=== PATIENT | female | born 2000 | race Caucasian/White ===

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

== ENCOUNTER 2022-06-14 17:24 | Emergency (ER) | payer MEDICAID ==
[~2022-06-14] VITALS: Ht 175.3 cm; Wt 65.9 kg
[~2022-06-14 17:24] MED LIST changes: -NAPR-56 PO
[2022-06-14 17:43] VITALS: BP 111/51
[2022-06-14] MEDS ORDERED: diazepam 5mg tablet PO ONE (17:55)
[2022-06-14] MEDS ORDERED: ketorolac tromethamine 15mg/ml inj. IM ONE (17:55)
[2022-06-14] MEDS ORDERED: cyclobenzaprine 10mg tablet PO ONE (17:55)
[2022-06-14] MEDS ORDERED: IBUP-1986 PO (17:56)
[2022-06-14] MEDS ORDERED: CYCL-1 PO (17:56)
== END 2022-06-14 18:38 | disposition home or self-care (01) ==
LOC: ER 17:25
DX: M43.6 Torticollis (principal); R51.9 Headache, unspecified; Z87.448 Personal history of other diseases of urinary system; Z79.899 Other long term (current) drug therapy; Z79.2 Long term (current) use of antibiotics
CPT/HCPCS: 96372; 99283; J1885

== ENCOUNTER 2022-12-21 10:16 | Emergency (ER) | payer MEDICAID ==
[~2022-12-21] VITALS: Ht 175.3 cm; Wt 97.6 kg
[~2022-12-21 10:16] MED LIST changes: +CYCL-1 PO; +IBUP-1986 PO
[2022-12-21 11:00] LABS: URINE HCG NEGATIVE (NEG)
[2022-12-21 11:17] LABS: CLARITY,URINE CLEAR (Clear); COLOR,URINE YELLOW (Yellow); GLUCOSE, URINE NEGATIVE (Neg); KETONES,URINE TRACE mg/dl (Neg); LEUKOCYTE ESTERASE ,URINE NEGATIVE (Neg); NITRITES, URINE NEGATIVE (Neg); OCCULT BLOOD,URINE NEGATIVE (Neg); PROTEIN,URINE NEGATIVE (Neg); UROBILINOGEN,URINE 0.2 E.U/dL (0.2-1.0)
[2022-12-21 11:21] LABS: UA COLLECTION TYPE CLN CATCH MIDSTREAM
[2022-12-21] MEDS ORDERED: normal saline 1000ml 1,000 ML IV ONE (12:45)
[2022-12-21] MEDS ORDERED: ondansetron/PF 4mg/2ml inj IV ONE (12:45)
[2022-12-21 13:17] LABS: BASOPHILS # (AUTO) 0.1 X10'3 (0-0.2); BASOPHILS % (AUTO) 0.5 % (0-1); EOSINOPHILS % (AUTO) 0.2 % (0-6); HEMATOCRIT 32.3 % (35.0-45.0); HEMOGLOBIN 10.1 g/dl (12.0-16.0); LYMPHOCYTES # (AUTO) 0.5 X10'3 (1.1-4.8); LYMPHOCYTES % (AUTO) 2.8 % (21-51); MEAN CORPUSCULAR HEMOGLOBIN 24.5 PG (27.0-31.0); MEAN CORPUSCULAR HGB CONC 31.3 g/dL (33.0-36.5); MEAN CORPUSCULAR VOLUME 78.4 FL (78-98); MEAN PLATELET VOLUME 7.4 FL (7.4-10.4); MONOCYTES # (AUTO) 0.7 X10'3 (0-0.9); MONOCYTES % (AUTO) 4.3 % (2-12); NEUTROPHILS # (AUTO) 15.3 X10'3 (1.8-7.7); NEUTROPHILS % (AUTO) 92.2 % (42-75); PLATELET COUNT 548 X10'3 (140-440); RED BLOOD COUNT 4.12 X10'6 (4.20-5.60); RED CELL DISTRIBUTION WIDTH 16.6 % (11.5-14.5); WHITE BLOOD COUNT 16.6 X10'3 (4.5-11.0)
[2022-12-21 13:25] LABS: ALANINE AMINOTRANSFERASE 22 U/L (12-78); ALBUMIN 4.1 G/DL (3.4-5.0); ALBUMIN/GLOBULIN RATIO 1.2 (1.1-1.5); ALKALINE PHOSPHATASE 53 IU/L (46-116); ANION GAP 11 (8-16); ASPARTATE AMINO TRANSFERASE 23 U/L (10-37); BILIRUBIN,TOTAL 0.5 MG/DL (0.1-1.0); BLOOD UREA NITROGEN 14 MG/DL (7-18); BUN/CREATININE RATIO 22.2 (10.0-20.0); CALCIUM 8.8 MG/DL (8.5-10.1); CHLORIDE 105 MMOL/L (99-107); CREATININE 0.63 MG/DL (0.40-0.90); GLUCOSE 111 MG/DL (70-104); LIPASE 84 U/L (73-393); SODIUM 141 MMOL/L (135-145); TOTAL CARBON DIOXIDE 24.8 MMOL/L (24-32); TOTAL PROTEIN 7.5 G/DL (6.4-8.2); eGFR > 90 ML/MIN
[2022-12-21 13:40] LABS: HYPOCHROMASIA 1+; MICROCYTOSIS 1+; PLATELET ESTIMATE INCREASED; POIKILOCYTOSIS 1+
[2022-12-21 13:41] LABS: ANISOCYTOSIS 1+; ELLIPTOCYTES 1+
[2022-12-21 14:22] VITALS: BP 100/48
[2022-12-21] MEDS ORDERED: ONDA4TAB12 PO (15:59)
== END 2022-12-21 16:13 | disposition home or self-care (01) ==
LOC: ER 10:16
DX: R11.2 Nausea with vomiting, unspecified (principal); R10.13 Epigastric pain; E86.0 Dehydration; R10.84 Generalized abdominal pain; Z79.899 Other long term (current) drug therapy
CPT/HCPCS: 36415; 74177; 76700; 80053; 81003; 81025; 83690; 85008; 85025; 96361; 96374; 99285; J2405; J7030

== ENCOUNTER 2023-03-14 13:59 | Emergency (ER) | payer MEDICAID ==
[~2023-03-14] VITALS: Ht 175.3 cm; Wt 76.2 kg
[~2023-03-14 13:59] MED LIST changes: +ONDA4TAB12 PO
--- NOTE | 2023-03-14 17:00 | NUR ---
DELISA RN at bedside speaking with patient.
[2023-03-14] MEDS ORDERED: CefTRIAXone 500MG IM Kit w/LIDOcaine (for pt below or = to 150kg) IM ONE (18:05)
[2023-03-14] MEDS ORDERED: LEVONORGESTREL 1.5MG tablet 1.5 MG TABLET PO ONE (18:05)
[2023-03-14] MEDS ORDERED: azithromycin 250mg tablet PO ONE (18:05)
[2023-03-14] MEDS ORDERED: TINIDAZOLE 500 MG TABLET PO ONE (18:05)
[2023-03-14 18:09] LABS: URINE HCG NEGATIVE (NEG)
[2023-03-14 20:44] VITALS: BP 120/77; PULSE 57; RESP 14; TEMP 97.9; O2SAT 100
== END 2023-03-14 20:40 | disposition home or self-care (01) ==
LOC: ER 13:59
DX: T74.21XA Adult sexual abuse, confirmed, initial encounter (principal); F17.200 Nicotine dependence, unspecified, uncomplicated; Z79.2 Long term (current) use of antibiotics; Z79.899 Other long term (current) drug therapy; Y07.9 Unspecified perpetrator of maltreatment and neglect
CPT/HCPCS: 81025; 96372; 99284; J0696